=== PATIENT | female | born 1970 | race African-American/Black ===

== ENCOUNTER 2023-03-21 13:09 | Emergency (ER) | payer SELFPAY ==
[2023-03-21 13:42] VITALS: BP 149/94; PULSE 84; RESP 18; TEMP 97.3; BMI 38.7
[2023-03-21] MEDS ORDERED: MECLIZINE HCL 25 MG TABLET (FP) ONE (17:25)
[2023-03-21] MEDS: LACTATED RINGERS SOLUTION 1000 ML INFUS.BAG IV ONE (17:54)
[2023-03-21] MEDS: MECLIZINE HCL 25 MG TABLET (FP) PO ONE (17:54)
[2023-03-21 18:06] LABS: EOS % 0.4 % (0-4.5); HEMOGLOBIN 13.5 GM/dL (10.7-15.3); LYMPH % 35.7 % (8-40); MCHC 33.7 g/dl (32.0-36.0); MEAN PLT VOLUME 9.2 fl (7.5-11.1); MONO % 9.5 % (3.8-10.2); NEUT % 53.4 % (42.8-82.8); PLATELET COUNT 229 10^3/uL (134-434); RBC 4.65 M/mm3 (3.60-5.2); RDW 13.6 % (11.6-15.6); WHITE BLOOD COUNT 5.1 K/mm3 (4.0-10.0)
[2023-03-21 18:15] LABS: PH,URINE 5.5 (5.0-8.0); URINE APPEARANCE CLEAR; URINE BILIRUBIN NEGATIVE (NEGATIVE); URINE COLOR YELLOW; URINE GLUCOSE (UA) NEGATIVE (NEGATIVE); URINE KETONE TRACE (NEGATIVE); URINE LEUK ESTERASE NEGATIVE (NEGATIVE); URINE NITRITE NEGATIVE (NEGATIVE); URINE PROTEIN NEGATIVE (NEGATIVE); URINE UROBILINOGEN 0.2 mg/dL (0.2-1.0)
[2023-03-21 18:27] LABS: POTASSIUM 3.4 mmol/L (3.5-5.1)
[2023-03-21 18:29] LABS: CALCIUM 9.1 mg/dL (8.5-10.1); INR 1.06 (0.83-1.09); PROTHROMBIN TIME (PATIENT) 12.3 SEC (9.7-13.0)
[2023-03-21 18:30] LABS: BLOOD UREA NITROGEN 8.3 mg/dL (7-18); MAGNESIUM 2.2 mg/dL (1.8-2.4)
[2023-03-21 18:33] LABS: CREATININE 0.7 mg/dL (0.55-1.3); PHOSPHOROUS 3.1 mg/dL (2.5-4.9)
[2023-03-21 18:34] LABS: BILIRUBIN,TOTAL 1.3 mg/dL (0.2-1); TOT PROT 7.8 g/dl (6.4-8.2)
[2023-03-21] MEDS ORDERED: POTASSIUM CHLORIDE TABS 20 MEQ TABLET.ER (FP) PO ONE (19:17)
[2023-03-21] MEDS: POTASSIUM CHLORIDE TABS 20 MEQ TABLET.ER (FP) PO ONE (19:24)
== END 2023-03-21 20:15 | disposition home or self-care (01) ==
LOC: JER 13:09
DX: R42 Dizziness and giddiness (principal); Z20.822 Contact with and (suspected) exposure to COVID-19
CPT/HCPCS: 0241U-QW; 36415; 71045-TC-FY; 80053; 81003; 83735; 84100; 84484; 85025; 85610; 86850; 86900; 86901; 87086; 93005; 93010; 99285-25